=== PATIENT | female | born 1985 | race Caucasian/White ===

== ENCOUNTER → 2016-12-21 | Outpatient (CLI) | payer BC | END | disposition home or self-care (01) | LOC: LAB 14:37 | PROVIDERS: ATTEND Psychiatry & Neurology Neurology | DX: I10 Essential (primary) hypertension (principal); B20 Human immunodeficiency virus [HIV] disease; G60.3 Idiopathic progressive neuropathy; M35.1 Other overlap syndromes; G35 Multiple sclerosis; M35.3 Polymyalgia rheumatica; M33.22 Polymyositis with myopathy ==

== ENCOUNTER → 2017-02-26 | Outpatient (CLI) | payer BC ==
--- NOTE | 2017-02-27 08:46 | RAD ---
EXAM DESCRIPTION: Metastatic Series CLINICAL HISTORY: 31 years, Female, ABNORMALITY OF GLOBULIN COMPARISON: None. FINDINGS: No evidence of any abnormalities in the skeletal system. Stool throughout the colon. Calcification overlying the calvarium most likely dural. IMPRESSION: Probable constipation. No evidence of abnormal bony findings. Electronically signed by: David Duron MD 02/27/2017 8:45 AM CDT
== END | disposition home or self-care (01) ==
LOC: RAD 09:21
PROVIDERS: ATTEND Internal Medicine Hematology & Oncology
DX: R77.1 Abnormality of globulin (principal); M54.9 Dorsalgia, unspecified; M79.7 Fibromyalgia; R53.83 Other fatigue

== ENCOUNTER → 2017-03-08 | Outpatient (CLI) | payer BC ==
--- NOTE | 2017-03-11 09:18 | CT ---
EXAM DESCRIPTION: Abdomen/Pelvis w/Contrast (accession [id number]), Soft Tissue Neck (accession [id number]), Chest w/Contrast (accession [id number]) CLINICAL HISTORY: Abnormality to COMPARISON: None Available TECHNIQUE: CT of the neck, chest, abdomen and pelvis was performed with IV contrast. This exam was performed according to our departmental dose-optimization program, which includes automated exposure control, adjustment of the mA and/or kV according to patient size and/or use of iterative reconstruction technique. FINDINGS: CT neck: The neck is not visualized superior to the odontoid. No anterior or posterior cervical chain adenopathy is seen. There is no supraclavicular or submental adenopathy. The submandibular and visualized portions of the parotid glands are unremarkable. There is no pharyngeal mucosal thickening. The periventrical spaces are bilaterally symmetric. No thyroid nodule. No concerning bone lesion. CT Chest: There is no mediastinal or hilar adenopathy. No pleural or pericardial effusion. No esophageal wall thickening or thoracic aortic abnormality. There is no airspace consolidation or lung nodule. The central airways are clear. No concerning bone lesion. No breast or other chest wall lesion is seen. There is no axillary adenopathy. CT abdomen pelvis: The abdominal aorta is unremarkable. No mesenteric or retroperitoneal adenopathy. No inguinal or other pelvic adenopathy. There is no gastric wall thickening. No calcified gallstone. The spleen is not enlarged. The liver, pancreas, adrenals and kidneys are unremarkable. No wall bowel wall thickening or mesenteric inflammation. No bladder wall thickening. The uterus and ovaries are not identified, please correlate with surgical history. There is a moderate amount colonic stool and gas without colonic wall thickening or pericolonic inflammation. No concerning bone lesion. IMPRESSION: No adenopathy, splenomegaly or other lesion in the neck, chest, abdomen or pelvis to suggest lymphoma. Electronically signed by: Antony Baer MD 03/11/2017 9:17 AM CDT
--- NOTE | 2017-03-11 09:18 | CT ---
EXAM DESCRIPTION: Abdomen/Pelvis w/Contrast (accession [id number]), Soft Tissue Neck (accession [id number]), Chest w/Contrast (accession [id number]) CLINICAL HISTORY: Abnormality to COMPARISON: None Available TECHNIQUE: CT of the neck, chest, abdomen and pelvis was performed with IV contrast. This exam was performed according to our departmental dose-optimization program, which includes automated exposure control, adjustment of the mA and/or kV according to patient size and/or use of iterative reconstruction technique. FINDINGS: CT neck: The neck is not visualized superior to the odontoid. No anterior or posterior cervical chain adenopathy is seen. There is no supraclavicular or submental adenopathy. The submandibular and visualized portions of the parotid glands are unremarkable. There is no pharyngeal mucosal thickening. The periventrical spaces are bilaterally symmetric. No thyroid nodule. No concerning bone lesion. CT Chest: There is no mediastinal or hilar adenopathy. No pleural or pericardial effusion. No esophageal wall thickening or thoracic aortic abnormality. There is no airspace consolidation or lung nodule. The central airways are clear. No concerning bone lesion. No breast or other chest wall lesion is seen. There is no axillary adenopathy. CT abdomen pelvis: The abdominal aorta is unremarkable. No mesenteric or retroperitoneal adenopathy. No inguinal or other pelvic adenopathy. There is no gastric wall thickening. No calcified gallstone. The spleen is not enlarged. The liver, pancreas, adrenals and kidneys are unremarkable. No wall bowel wall thickening or mesenteric inflammation. No bladder wall thickening. The uterus and ovaries are not identified, please correlate with surgical history. There is a moderate amount colonic stool and gas without colonic wall thickening or pericolonic inflammation. No concerning bone lesion. IMPRESSION: No adenopathy, splenomegaly or other lesion in the neck, chest, abdomen or pelvis to suggest lymphoma. Electronically signed by: Antony Baer MD 03/11/2017 9:17 AM CDT
--- NOTE | 2017-03-11 09:18 | CT ---
EXAM DESCRIPTION: Abdomen/Pelvis w/Contrast (accession [id number]), Soft Tissue Neck (accession [id number]), Chest w/Contrast (accession [id number]) CLINICAL HISTORY: Abnormality to COMPARISON: None Available TECHNIQUE: CT of the neck, chest, abdomen and pelvis was performed with IV contrast. This exam was performed according to our departmental dose-optimization program, which includes automated exposure control, adjustment of the mA and/or kV according to patient size and/or use of iterative reconstruction technique. FINDINGS: CT neck: The neck is not visualized superior to the odontoid. No anterior or posterior cervical chain adenopathy is seen. There is no supraclavicular or submental adenopathy. The submandibular and visualized portions of the parotid glands are unremarkable. There is no pharyngeal mucosal thickening. The periventrical spaces are bilaterally symmetric. No thyroid nodule. No concerning bone lesion. CT Chest: There is no mediastinal or hilar adenopathy. No pleural or pericardial effusion. No esophageal wall thickening or thoracic aortic abnormality. There is no airspace consolidation or lung nodule. The central airways are clear. No concerning bone lesion. No breast or other chest wall lesion is seen. There is no axillary adenopathy. CT abdomen pelvis: The abdominal aorta is unremarkable. No mesenteric or retroperitoneal adenopathy. No inguinal or other pelvic adenopathy. There is no gastric wall thickening. No calcified gallstone. The spleen is not enlarged. The liver, pancreas, adrenals and kidneys are unremarkable. No wall bowel wall thickening or mesenteric inflammation. No bladder wall thickening. The uterus and ovaries are not identified, please correlate with surgical history. There is a moderate amount colonic stool and gas without colonic wall thickening or pericolonic inflammation. No concerning bone lesion. IMPRESSION: No adenopathy, splenomegaly or other lesion in the neck, chest, abdomen or pelvis to suggest lymphoma. Electronically signed by: Antony Baer MD 03/11/2017 9:17 AM CDT
== END | disposition home or self-care (01) ==
LOC: CT 08:19
PROVIDERS: ATTEND Internal Medicine Hematology & Oncology
DX: D89.2 Hypergammaglobulinemia, unspecified (principal); M79.7 Fibromyalgia; M54.9 Dorsalgia, unspecified

== ENCOUNTER 2020-04-04 17:41 | Emergency (ER) | payer BC ==
[2020-04-04] MEDS ORDERED: SODIUM CHLORIDE 0.9% 1000ML 1,000 ML IVS ONE (17:52)
[2020-04-04] MEDS ORDERED: ONDANSETRON INJ 4 MG/2 ML VIAL IV ONE (17:52)
[2020-04-04] MEDS ORDERED: SODIUM CHLORIDE 0.9% (FLUSH) 10 ML SYG IV PRN (17:52)
[2020-04-04] MEDS ORDERED: KETOROLAC TROMETHAMINE INJ 30 MG/ML VIAL IV ONE (17:53)
--- NOTE | 2020-04-04 17:53 | ED.PDOC ---
History of Present Illness - General Time Seen by Provider: 04/04/20 17:51 Source: patient - History of Present Illness Initial Comments: 34 yo female who presents with CC of headache. Onset this morning with worsening around 2 PM and further worsening around 4 PM, located to front of head and behind eyes without radiation, constant, throbbing, 10/10 in severity at worst, worse with the light and sounds, better with leaning forward and dark rooms, tried some Excedrin with little relief. Associated with nausea and approximately 10 episodes of NBNB emesis. Reports a little bit of blurry vision earlier but now resolved. Also had some dizzy spells a couple of days ago but not today. Denies any fevers, chills, abdominal pain, chest pain, shortness of breath, urinary symptoms, weakness, numbness, sore throat. Reports similar headaches in the past, last one was about 1 year ago. Does not take OCPs. Allergies/Adverse Reactions: Allergies Codeine Allergy (Verified 05/22/15 12:59) Home Medications: Ambulatory Orders Aspirin [Aspirin Adult Low Dose] 81 mg PO DAILY 05/22/15 HYDROcodone 5MG/APAP 325MG [[place] 5/325] 1 ea PO Q8H #8 tab 05/23/15 Ibuprofen [Motrin Tab] 600 mg PO Q8H #20 tab 05/23/15 RX: Promethazine HCl 25 mg PO Q8H PRN 14 Days #10 tab 04/04/20 Review of Systems - Review of Systems Review of Systems: 04/04/20 20:06 as per HPI All other Systems: Reviewed and Negative Past Medical History (General) - Patient Medical History Hx Cardiac Disorders: No Hx Congestive Heart Failure: No Hx Diabetes: No - Social History Hx Tobacco Use: No Hx Alcohol Use: No Hx Substance Use: No Hx Substance Use Treatment: No Hx Depression: No Hx Physical Abuse: No Hx Emotional Abuse: No Hx Suspected Abuse: No Family Medical History - Family History Mother Family History: Unknown Living Status: Still Living Physical Exam - Physical Exam General Appearance: Alert, No apparent distress Eye Exam: bilateral normal - Photophobia Ears, Nose, Throat: hearing grossly normal, normal ENT inspection, normal pharynx Neck: non-tender, full range of motion, supple, normal inspection Respiratory: lungs clear, normal breath sounds, no respiratory distress, no accessory muscle use Cardiovascular/Chest: normal peripheral pulses, regular rate, rhythm, no edema, no gallop, no JVD, no murmur Peripheral Pulses: radial,right: 2+, radial,left: 2+ Gastrointestinal/Abdominal: non tender, soft, no organomegaly Back Exam: normal inspection, no CVA tenderness, no vertebral tenderness Extremity: normal range of motion, non-tender, normal inspection, no pedal edema, no calf tenderness Neurologic: wig comber II-XII nml as tested, no motor/sensory deficits, alert, normal mood/affect, oriented x 3 Skin Exam: normal color, warm/dry Progress - Progress Progress: 04/04/20 18:25 Headache -Appears consistent with migraine most likely. Consider also tension, cluster, gastroenteritis, UTI, other. Patient stable, vitals WNL. Does not appear of emergent etiology. -Obtain basic blood work, place PIV, 1L NS bolus, Toradol 30 mg IV, Zofran 4 mg IV, reassess 04/04/20 20:08 -Lab work largely unremarkable, patient remained stable, reports pain improved to 7/10 -We will give a dose of Phenergan 12.5 mg IV 04/04/20 20:45 -Pain further improved, patient has remained stable. Discussed diagnosis of migraine headache and continued treatment at home. Advised close follow-up with primary care physician. -DC to home in good condition, return warnings discussed. Chaz Tovar MD Billing #[id number] 04/04/20 17:52 IV Care:Saline Lock per Protoc QSHIFT Laboratory Results - last 24 hr 04/04/20 04/04/20 04/04/20 18:05 18:05 18:48 WBC 5.7 RBC 5.06 Hgb 15.4 Hct 44.3 MCV 87.6 MCH 30.4 MCHC 34.7 RDW 12.5 Plt Count 264 MPV 8.6 Absolute Neuts (auto) 3.80 Absolute Lymphs (auto) 1.50 Absolute Monos (auto) 0.40 Absolute Eos (auto) 0.10 Absolute Basos (auto) 0.00 Neutrophils % 65.7 Lymphocytes % 25.5 Monocytes % 7.1 Eosinophils % 1.1 Basophils % 0.6 Sodium 138 Potassium 3.5 L Chloride 103 Carbon Dioxide 25 Anion Gap 13.5 BUN 14 Creatinine 0.87 BUN/Creatinine Ratio 16.1 Random Glucose 110 H Serum Osmolality 276.8 Calcium 9.6 Total Bilirubin 0.6 Direct Bilirubin < 0.1 Indirect Bilirubin 0.5 AST 16 ALT 21 Alkaline Phosphatase 66 Serum Total Protein 7.5 Albumin 4.7 Lipase 28 Urine Color Yellow Urine Appearance Cloudy Urine pH 7.0 Ur Specific Jacob 1.025 Urine Protein Negative Urine Glucose (UA) Negative Urine Ketones 40 H Urine Blood Negative Urine Nitrite Negative Urine Bilirubin Negative Urine Urobilinogen 0.2 Ur Leukocyte Esterase Negative Urine RBC 0-1 Urine WBC 0-1 Ur Epithelial Cells 5-10 Urine Bacteria 1+ Urine Mucus Moderate Departure - Departure Clinical Impression: Migraine Qualifiers: Migraine type: unspecified Status migrainosus presence: without status migrainosus Intractability: not intractable Qualified Code(s): G43.909 - Migraine, unspecified, not intractable, without status migrainosus Time of Disposition: 20:15 Disposition: Discharge to Home or Self Care Condition: Good Departure Forms: ED Discharge - Pt. Copy, Patient Portal Self Enrollment Instructions: DI for Headache Diet: resume usual diet Activity: increase activity as tolerated Referrals: DRAGAN MARTINEZ [Primary Care Provider] - 1-2 Weeks Prescriptions: RX: Promethazine HCl 25 mg PO Q8H PRN 14 Days #10 tab PRN Reason: Nausea Home Medications: Ambulatory Orders Aspirin [Aspirin Adult Low Dose] 81 mg PO DAILY 05/22/15 HYDROcodone 5MG/APAP 325MG [[place] 5/325] 1 ea PO Q8H #8 tab 05/23/15 Ibuprofen [Motrin Tab] 600 mg PO Q8H #20 tab 05/23/15 RX: Promethazine HCl 25 mg PO Q8H PRN 14 Days #10 tab 04/04/20 Additional Instructions: Remain well-hydrated and advance her diet and activity level as tolerated. Continue to take OTC medications such as ibuprofen 600 mg every 6 hours as needed and Tylenol 650 mg every 6 hours as needed. You may take the Phenergan as directed for nausea or breakthrough headache. Return to the ED if your symptoms worsen or are uncontrolled or if other concerning symptoms develop. Follow-up with your primary care physician in 1 to 2 weeks or sooner as needed.
[2020-04-04] MEDS ORDERED: PROMETHAZINE HCL INJ 12.5 MG in SODIUM CHLORIDE 0.9% 50ML 50 ML IVPB ONE (20:02)
[2020-04-04 20:10] VITALS: O2SAT 100
[2020-04-04 20:44] VITALS: BP 95/78; TEMP 96.3
== END 2020-04-04 20:42 | disposition home or self-care (01) ==
LOC: ER 17:41
DX: G43.909 Migraine, unspecified, not intractable, without status migrainosus (principal); R11.2 Nausea with vomiting, unspecified
CPT/HCPCS: 36415; 80048; 80076; 81001; 83690; 85025; A4216; J1885; J2405; J2550; J7030

== ENCOUNTER → 2020-11-18 | Outpatient (CLI) | payer BC | LOC: YCFC.O 14:59 | PROVIDERS: ATTEND Nurse Practitioner Family | DX: Z20.828 Contact with and (suspected) exposure to other viral communicable diseases (principal) ==

== ENCOUNTER → 2020-11-23 | Outpatient (CLI) | payer BC | LOC: YCFC.O 09:52 | PROVIDERS: ATTEND Nurse Practitioner Family | DX: Z20.828 Contact with and (suspected) exposure to other viral communicable diseases (principal) ==

== ENCOUNTER → 2020-12-08 | Outpatient (CLI) | payer BC | LOC: YCFC.O 10:35 | PROVIDERS: ATTEND Nurse Practitioner Family | DX: U07.1 COVID-19 (principal) ==